=== PATIENT | male | born 1975 | race Caucasian/White ===

== ENCOUNTER 2018-10-25 13:20 | Emergency (ER) | payer OTHER ==
--- NOTE | 2018-10-25 13:30 | PDOC ---
Rapid Medical Evaluation Time Seen by Provider: 10/25/18 13:25 Medical Evaluation: 10/25/18 13:26 HPI:Adominal pain, and dysuria Kidney in abdomen PE:No gross deficits; viscular rash R abdomen one spot ORDERS:UA CBC CMP 10/25/18 13:29 Discharge Disposition - Diagnosis Dysuria - Referrals - Patient Instructions - Post Discharge Activity
[2018-10-25 13:33] VITALS: TEMP 98.5; BMI 29.0
--- NOTE | 2018-10-25 15:17 | PDOC ---
History of Present Illness - General Chief Complaint: Pain Stated Complaint: RT SIDED ABD PAIN / PENILE PAIN Time Seen by Provider: 10/25/18 13:25 History Source: Patient, Spouse Exam Limitations: Language Barrier - History of Present Illness Initial Comments: 10/25/18 15:52 Patient is a 43 year old male with history of right sided nephrolithiais (last stone passed spontaneously 3 years ago), hyperlipidemia (previously on rosuvastatin) presents with complaint of dysuria with right sided flank pain. Patient endorses pain has been onging for past month. Pain is described as sharp , with pressure originating at right flank and radiating to penis, and testicles. He endorses sharp dysuria, and urinary hesitancy due to the pain. Denies hematuria, or penile discharge. Patient admits that he was seen at [facility] ED three weeks ago where he was told he has UTI; and discharged with 6 day course antibiotics (does not recall name). He states that he was checked for gonorrhea, chlamydia which was negative. Patient states his pain is similar to his renal colic three years ago when diagnosed with nephrolithiasis. In addition, patient endorses pruritic, and painful rash along right hip that has been ongoing for the past week. He states that it began as 'numerous pimples ' that have since disappeared; denies any discharge, bites, or trauma to the area. Attempted applying hydrocortisone cream which was not palliative. Patient endorses history of varicella. PMH: nephrolithiasis, hyperlipidemia, undescended right testicle. PSH: appendectomy 10 years ago, undescended right testicel repair, tonsilectomy Family history: Mother: breast cancer Father: from [place] at 71 years old Allergies: NKDA Social: Lives at home with his . Works as driver sales. Admits smoking one - two cigarettes/ day as a teenager. Has not smoked for past 20 years. Denies illicit drug use. He admits drinking one/ third to one/ half bottle of whiskey once a month. Past History - Travel Traveled outside of the country in the last 30 days: No - Past Medical History Allergies/Adverse Reactions: Allergies Allergy/AdvReac Type Severity Reaction Status Date / Time No Known Allergies Allergy Verified 10/25/18 16:04 Home Medications: Ambulatory Orders Ondansetron HCl [Zofran] 4 mg PO Q8H 3 Days #7 tablet 10/25/18 Valacyclovir HCl [Valtrex] 1,000 mg PO Q8H 7 Days #21 tablet 10/25/18 COPD: No CHF: No DVT: No Dementia: No Hypercholesterolemia: Yes Other medical history: SHINGLES - Immunization History Immunization Up to Date: Yes - Suicide/Smoking/Psychosocial Hx Smoking History: Former smoker Information on smoking cessation initiated: No Hx Alcohol Use: Yes Drug/Substance Use Hx: No Substance Use Type: None Review of Systems - Review of Systems Able to Perform ROS?: Yes Is the patient limited [place] proficient: Yes Constitutional: Yes: Fever. No: Chills, Diaphoresis HEENTM: No: Blurred Vision, Recent change in vision, Throat Pain, Throat Swelling, Difficulty Swallowing Respiratory: No: Cough, Orthopnea, Shortness of Breath, Stridor, Wheezing, Productive cough Cardiac (ROS): No: Chest Pain, Edema, Irregular Heart Rate, Lightheadedness, Palpitations, Syncope, Chest Tightness ABD/GI: No: Abdominal Distended, Blood Streaked Bowels, Constipated, Diarrhea, Nausea, Rectal Bleeding, Vomiting, Tarry Stools : Yes: Burning, Dysuria, Pain, Other (urinary hesitency secondary to pain). No: Hematuria, Incontinence, Urgency Musculoskeletal: No: Joint Swelling, Muscle Weakness, Neck Pain, Joint Stiffness Integumentary: Yes: Pruritus, Rash, Other (paresthesioas surrounding rash). No : Bruising, Dryness, Flushing Neurological: No: Headache, Seizure, Tremors, Weakness Psychiatric: No: Anxiety, Depression *Physical Exam - Vital Signs Last Vital Signs Temp Pulse Resp BP Pulse Ox 98.5 F 63 16 114/75 98 10/25/18 13:28 10/25/18 13:28 10/25/18 13:28 10/25/18 13:28 10/25/18 13:28 - Physical Exam General Appearance: Yes: Appropriately Dressed. No: Apparent Distress HEENT: positive: EOMI, CHANDNI. negative: Scleral Icterus (R), Scleral Icterus (L) , Pharyngeal Erythema, Rhinorrhea, Sinus Tenderness Neck: positive: Trachea midline, Supple. negative: Stridor, Lymphadenopathy (R) , Lymphadenopathy (L), Thyromegaly Respiratory/Chest: positive: Normal Breath Sounds. negative: Respiratory Distress, Accessory Muscle Use, Crackles, Rales, Stridor, Wheezing Cardiovascular: positive: Regular Rhythm, Regular Rate, S1, S2. negative: Edema , Murmur Gastrointestinal/Abdominal: positive: Tender (tender to palpation RLQ), Soft. negative: Distended, Guarding, Rebound, Hepatomegaly Male Genitalia: positive: other (no penile lesions, or discharge. Bilateral testicles palpted without edema, fluctuance, or tenderness.). negative: testicular tenderness, testicular mass Musculoskeletal: negative: CVA Tenderness (R), CVA Tenderness (L), Decreased Range of Motion Extremity: negative: Calf Tenderness Integumentary: positive: Dry, Warm, Rash (4cm x 2cm macular erythematous rash, papular/ vesicular; no drainage ), Other Neurologic: positive: military personnel specialist II-XII NML intact, Fully Oriented, Alert, Normal Mood/ Affect, Motor Strength 10/22 ED Treatment Course - LABORATORY CBC & Chemistry Diagram: 10/25/18 15:16 10/25/18 15:16 Medical Decision Making - Medical Decision Making 10/25/18 16:29 Patient is 43 year old male presents with complaint of dysuria, with right sided flank pain. History of nephrolithiasis with similar symptoms Findings suggestive of renal colic. Will obtain CBC, CMP, UA, urine culture CT abdomen/ pelvis without contrast to evaluate for nephrolithiasis Pain control with Toradol 15mg IV, one time dose 10/25/18 17:03 CBC, CMP unremarkable UA unremarkable for UTI CT reveals 4mm non obstructing stone at right UP junction. Pain likely secondary to renal colic due to passing stone. Rash concerning for zoster vs. tinea Discharge home with Valacyclovir, Clotrimazole. Follow up with Urologist, and [facility] [facility] referral provided. Advised proper hand hygiene covering rash, and avoidance of contact with women, young children, immunocompromized patients. *DC/Admit/Observation/Transfer Diagnosis at time of Disposition: Dysuria, Nephrolithiasis - Discharge Dispostion Disposition: HOME Decision to Admit order: No - Prescriptions Prescriptions: Ondansetron HCl [Zofran] 4 mg PO Q8H 3 Days #7 tablet Valacyclovir HCl [Valtrex] 1,000 mg PO Q8H 7 Days #21 tablet - Referrals Referrals: Evans Orozco MD [Staff Physician] - Call tomorrow Stacey Reed MD [Staff Physician] - Call tomorrow - Patient Instructions Additional Instructions: You were seen in the Emergency Department for complaint of right sided flank and groin pain. Your CT scan showed 4 mm right sided kidney stone You are being discharged home. Apply Valacyclovir 1000mg every 8 hours for one week. You may take Zofran 4mg every 8 hours for nausea, if needed. Follow up with [facility] [facility]in[facility]. A referral to Dr. Reed has been provided. Make sure to call in the morning to schedule an appointment for tomorrow. Follow up with urologist. A referral to Dr. Orozco has been provided. Make sure to call in the morning to schedule an appointment for tomorrow. You may take Tylenol or Motrin for pain if needed. Follow closely the dosage instructions printed on the medicine packaging, and be sure not to exceed the maximum recommended dosage for the medications. Follow up with primary care physician within one- two days after discharge. Return to the nearest Emergency Department if you experience subjective fevers, chills, shortness of breath, chest pain, palpitations, abdominal pain, nausea, vomiting, worsening pain, difficulty or pain urinating, blood in the urine. - Post Discharge Activity
[2018-10-25 15:43] LABS: BASO % 0.2 % (0-2.0); EOS % 1.9 % (0-4.5); HEMATOCRIT 46.4 % (35.4-49); HEMOGLOBIN 15.6 GM/dL (11.7-16.9); LYMPH % 29.4 % (8-40); MCH 31.1 pg (25.7-33.7); MCHC 33.6 g/dl (32.0-35.9); MEAN CELL VOLUME 92.5 fl (80-96); MEAN PLT VOLUME 7.4 fl (7.5-11.1); MONO % 9.9 % (3.8-10.2); NEUT % 58.6 % (42.8-82.8); PLATELET COUNT 283 K/MM3 (134-434); RBC 5.02 M/mm3 (4.00-5.60); RDW 12.2 % (11.9-15.9); WHITE BLOOD COUNT 7.8 K/mm3 (4.0-10.0)
[2018-10-25 16:11] LABS: ALBUMIN 4.1 g/dl (3.4-5.0); BILIRUBIN,TOTAL 0.3 mg/dL (0.2-1); CALCIUM 9.5 mg/dL (8.5-10.1); POTASSIUM 4.7 mmol/L (3.5-5.1); TOT PROT 7.8 g/dl (6.4-8.2)
[2018-10-25 16:18] LABS: URINE APPEARANCE CLEAR; URINE BILIRUBIN NEGATIVE (NEGATIVE); URINE COLOR YELLOW; URINE GLUCOSE (UA) NEGATIVE (NEGATIVE); URINE KETONE NEGATIVE (NEGATIVE); URINE LEUK ESTERASE NEGATIVE (NEGATIVE); URINE NITRITE NEGATIVE (NEGATIVE); URINE PROTEIN NEGATIVE (NEGATIVE); URINE UROBILINOGEN 0.2 mg/dL (0.2-1.0)
[2018-10-25] MEDS ORDERED: KETOROLAC TROMETHAMINE 15 MG/ML VIAL IVPUSH ONE (16:18)
[2018-10-25] MEDS ORDERED: KETOROLAC TROMETHAMINE 15 MG/ML VIAL ONE (16:37)
--- NOTE | 2018-10-25 17:24 | PDOC ---
Documentation entered by Brittanie Ling SCRIBE, acting as scribe for Robin Block MD. Robin Block MD: This documentation has been prepared by the Sushil phillips Amanda, SCRIBE, under my direction and personally reviewed by me in its entirety. I confirm that the documentation accurately reflects all work, treatment, procedures, and medical decision making performed by me. Attending Attestation - Resident Resident Name: Lance Jaimes - ED Attending Attestation I have performed the following: I have examined & evaluated the patient, The case was reviewed & discussed with the resident, I agree w/resident's findings & plan, Exceptions are as noted - HPI HPI: 10/25/18 15:45 The patient is a 43 year old male with history of right sided nephrolithiais ( last stone passed spontaneously 3 years ago), hyperlipidemia (previously on rosuvastatin) who presents to the ED with complaint of dysuria and associated right sided flank pain for about one month. He describes the pain as sharp, intermittent, with radiation to his groin. He reports sharp pain with urination and associated urinary hesitancy due to the pain. Secondarily, he states he was seen at [facility] ED three weeks ago where he was told he had a UTI, and discharged with 6 day course antibiotics (does not recall name). Pt completed the abx with no resolution of his pain. Allergies: NKDA - Physicial Exam PE: 10/25/18 16:07 GENERAL: Awake, alert, and fully oriented, in no acute distress. HEAD: No signs of trauma EYES: PERRLA, EOMI, sclera anicteric, conjunctiva clear ENT: Auricles normal inspection, hearing grossly normal, nares patent, oropharynx clear without exudates. Moist mucosa NECK: Nontender, no stepoffs, Normal ROM, supple, no lymphadenopathy, JVD, or masses LUNGS: Breath sounds equal, clear to auscultation bilaterally. No wheezes, and no crackles HEART: Regular rate and rhythm, normal S1 and S2, no murmurs, rubs or gallops ABDOMEN: Soft, nontender, normoactive bowel sounds. No guarding, no rebound. No masses EXTREMITIES: Normal range of motion, no edema. No clubbing or cyanosis. No cords, erythema, or tenderness NEUROLOGICAL: Cranial nerves II through XII intact. 5/5 strength and sensation in all extremities, Normal speech, normal gait, normal cerebellar function SKIN: Warm, Dry, normal turgor, no rashes or lesions noted. : no scrotal tenderness or masses, no evidence of torsion - Medical Decision Making 10/25/18 17:18 43 M with colicky R flank pain radiating to groin. Suspect renal colic. Pt with normal scrotal exam, no evidence of testicular torsion. - Labs, UA - CTAP - IVF, toradol
[2018-10-25 19:11] VITALS: BP 119/55; PULSE 56
== END 2018-10-25 20:11 | disposition home or self-care (01) ==
LOC: JER 13:20
PROC: 3E0333Z Introduction of Anti-inflammatory into Peripheral Vein, Percutaneous Approach (ICD-10-PCS; principal; 2018-10-25)
DX: N20.0 Calculus of kidney (principal); Z87.442 Personal history of urinary calculi; B02.9 Zoster without complications; B35.4 Tinea corporis
CPT/HCPCS: 36415; 74176-TC; 80053; 81003; 85025; 87086; 96374; 99283-25